=== PATIENT | female | born 1930 | race African-American/Black ===

== ENCOUNTER 2018-08-09 13:06 | Inpatient (IN) | payer MEDICARE, OTHER ==
[~2018-08-09 13:06] MED LIST: ALIS300T PO; AMLO10TA6 PO; ARIP5TAB10 PO; ASPI-1152 PO; FURO20TA4 PO; METF-441 PO; METO-356 PO; VALS320T16 PO
[2018-08-09 14:30] VITALS: BP 130/63
--- NOTE | 2018-08-09 14:30 | NUR ---
MS DOG HAIR CLIPPER NOTE PATIENT RECEIVED FROM GPS,ADMITTING WITH C/O LETHARGY AND POOR APPETITE.REPORT GIVEN BY CLAIR MICHELLE.ON HOLD 5250 EXPIRES ON 08/21/2018.PATIENT ON BED AXOX1.FOLLOW SIMPLE COMMAND .HISTORY OBTAINED FROM REPORT.ON ROOM AIR.NO SOB NO DISTRESS NOTED.CALL LIGHT IN REACH.SRX3.SITTER AT BEDSIDE.BED IS LOW AND IN LOCKED POSITION. MADE AWARE ABOUT ADMISSION.WILL CONTINUE TO MONITOR.
[2018-08-09] MEDS ORDERED: ONDANSETRON HCL/PF 4 MG/2 ML VIAL IVP PRN (15:00)
[2018-08-09] MEDS ORDERED: Z GUARD REMEDY 2 OZ OINT TP PRN (15:00)
[2018-08-09] MEDS ORDERED: ACETAMINOPHEN 325 MG TABLET PO PRN (15:00)
[2018-08-09] MEDS ORDERED: MAG HYDROX/AL HYDROX/SIMETH 30 ML UDC PO PRN (15:00)
[2018-08-09] MEDS ORDERED: MAGNESIUM HYDROXIDE 30 ML UDC PO PRN (15:00)
[2018-08-09] MEDS: IV NS 0.9% 1,000 ML IV PRN (15:55)
[2018-08-09 16:00] VITALS: BP 126/72
--- NOTE | 2018-08-09 17:00 | NUR ---
MS RN NOTE GOT CALL FROM CLAIR MICHELLE PER DISCONTINUE ORDER FOR HOLD.NOTED AND CARRIED OUT.
--- NOTE | 2018-08-09 19:13 | NUR ---
MS RN CLOSING NOTE REPORT GIVEN FOR PM NURSE FOR JULIO.PATIENT IN STABLE CONDITION.SAFETY MEASURES MAINTAINED.
[2018-08-09 20:00] VITALS: BP 106/73
--- NOTE | 2018-08-09 20:00 | NUR ---
MS RN NOTES RECEIVED PT ON BED. A/O X1 CONFUSED. TRYING TO GET OUT OF BED. ON ROOM AIR SATURATING WELL NO RESPIRATORY DISTRESS NOTED. IV ACCESS PATENT AND INTACT. HEAD OF BED ELEVATED. BED ALARM ON. SIDE RAILS UP X3. CALL LIGHT WITHIN REACH. WILL CONTINUE TO MONITOR PT CLOSELY.
--- NOTE | 2018-08-09 23:24 | NUR ---
MS RN NOTES PT TRYING TO GET OUT OF BED. PAGE ELECTRICIAN ELEVATOR MAINTENANCE OF PAGED. ORDERED SOFT B. WRIST RESTRAINTS. WILL CONTINUE TO MONITOR PT CLOSELY.
--- NOTE | 2018-08-10 00:53 | NUR ---
MS RN NOTES PT REFUSING DVT PUMP. PT KICKING. WILL CONTINUE TO MONITOR PT CLOSELY.
[2018-08-10 04:00] VITALS: BP 128/74
[2018-08-10] MEDS: IV NS 0.9% 1,000 ML IV PRN (05:06)
[2018-08-10 06:00] LABS: BASOPHILS % (AUTO) 0.4 % (0.0-2.0); EOSINOPHILS % (AUTO) 1.5 % (0.0-6.0); HEMATOCRIT 35 % (33-45); HEMOGLOBIN 11.7 g/dL (11.5-14.8); LYMPHOCYTES # (AUTO) 0.9 /CMM (0.8-4.8); MEAN CORPUSCULAR HGB CONC 34 g/dl (31.0-36.0); MEAN CORPUSCULAR VOLUME 91 fL (82-100); MONOCYTES # (AUTO) 0.4 /CMM (0.1-1.30); MONOCYTES % (AUTO) 6.6 % (2.0-12.0); NEUTROPHILS # (AUTO) 4.7 /CMM (1.8-8.9); NEUTROPHILS % (AUTO) 77.5 % (43.0-81.0); PLATELET COUNT (AUTO) 348 /CMM (150-450); RED BLOOD CELL COUNT(AUTO) 3.83 MIL/uL (4.0-5.2); WHITE BLOOD COUNT (AUTO) 6.1 K/uL (4.3-11.0)
[2018-08-10 06:22] LABS: ALANINE AMINOTRANSFERASE 84 U/L (12-78); ALBUMIN 2.3 g/dL (3.4-5.0); ALKALINE PHOSPHATASE 119 U/L (46-116); ASPARTATE AMINOTRANSFERASE 59 U/L (15-37); BILIRUBIN,TOTAL 0.4 mg/dL (0.2-1.0); CALCIUM, SERUM 8.2 mg/dL (8.5-10.1); CARBON DIOXIDE 29 mmol/L (21-32); GLUCOSE 119 mg/dL (74-106); MAGNESIUM 1.8 mg/dL (1.8-2.4); PHOSPHORUS 2.1 mg/dL (2.5-4.9); POTASSIUM 3.5 mmol/L (3.5-5.1); TOTAL PROTEIN, SERUM 5.9 g/dL (6.4-8.2); UREA NITROGEN, BLOOD 30 mg/dL (7-18)
[2018-08-10 06:28] LABS: CHOLESTEROL 138 mg/dL (<200); HDL CHOLESTEROL 57 mg/dL (40-60); LDL 63 mg/dL (0-99); TRIGLYCERIDES 68 mg/dL (30-150)
[2018-08-10 06:34] LABS: CHLORIDE 106 mmol/L (98-107); SODIUM SERUM 142 mmol/L (136-145)
--- NOTE | 2018-08-10 06:45 | NUR ---
MS RN NOTES NO ACUTE CHANGES NOTED DURING THE SHIFT. PROVIDED COMFORT AND SAFETY. DUE MEDS GIVEN. WILL ENDORSE TO THE AM NURSE FOR CONTINUITY OF CARE.
--- NOTE | 2018-08-10 07:34 | NUR ---
MS RN OPENING NOTE RECEIVED PATIENT IN BED. AWAKE, SLIGHTLY LETHARGIC, ORIENTED X2. ON ROOM AIR, TOLERATING WELL. IN NO APPARENT DISTRESS OR DISCOMFORT AT THIS TIME. RESPIRATIONS EVEN AND UNLABORED. PATIENT ABLE TO COMMUNICATE SOME BASIC NEEDS, LEFT FA 22G IVC WITH FLUIDS RUNNING AT 75ML/HR. PATENT AND INTACT. BILATERAL SOFT WRIST RESTRAINT NOTED DUE TO PATIENT BEING COMBATIVE AND TRYING TO PULL OUT LINES, GOOD CIRCULATION PRESENT BILATERALLY, PATIENT KEPT CLEAN AND COMFORTABLE. ALL NEEDS ATTENDED, SAFETY MEASURES IN PLACE, BED IN LOW LOCKED POSITION , SIDE RAILS UP X2, CALL LIGHT WITHIN EASY REACH WILL CONTINUE TO MONITOR.
[2018-08-10 08:00] VITALS: BP 138/73
--- NOTE | 2018-08-10 09:57 | NUR ---
WOUND CARE CONSULT: PT PRESENTS WITH MULTIPLE SKIN ISSUES INCLUDING STAGE 2 ULCERS TO SACRUM AND RT BUTTOCK, DUSKY COLOR TO BILATERAL HEELS AND PLANTAR FEET, DRY ABRASIONS TO LEFT ARM AND ELBOW AND TO RT LATERAL KNEE, ALL PRESENT ON ADMISSION. RECOMMENDATIONS MADE FOR WOUND CARE AND SKIN PROTECTION. DISCUSSED WITH NURSING STAFF. WILL SEE PRN. LOW IN AGREEMENT WITH PLAN OF CARE. ISOFLEX LOW AIRLOSS BED TO BE PLACED. CURRENT JOSEPH SCORE IS 11. Addendum: 08/10/18 at 0959 by DENNYS LEMONS WNDNU Amended: Links added.
[2018-08-10] MEDS ORDERED: HYDROGEL DRESSING 90 GM TUBE TP PRN (10:00)
[2018-08-10] MEDS ORDERED: NEUTRA PHOS 1 POWD.PACKET NG ONE (11:00)
[2018-08-10] MEDS ORDERED: ARIPIPRAZOLE 5 MG TABLET PO SCH (11:46)
--- NOTE | 2018-08-10 11:49 | NUR ---
PER DR. DAMIAN ORDER ACCU-CHECKS A[facility]S WITH MILD [employer]IDING [employer] COVERAGE, NOTIFY GPS FOR PSYCH FOLLOW UP. NOTED AND CARRIED OUT.
--- NOTE | 2018-08-10 11:50 | NUR ---
[facility]PS NOTIFIED FOR PSYCH FOLLOW UP. DR. HUYNH IS TO FOLLOW UP WITH THE PATIENT.
[2018-08-10] MEDS: METFORMIN 850 MG TABLET PO SCH ×2 (11:57→16:47)
[2018-08-10] MEDS: HYDROGEL DRESSING 90 GM TUBE TP SCH (12:10)
--- NOTE | 2018-08-10 13:59 | NUR ---
Patient was [facility] to acute medical floor due to dehydration and lethargy. Patient resides at in a one story home with her daughter [address] [place] [address].Spoke with daughter, states patient ambulates with a walker and requires min-mod assist with adl's. Patient daughter is her primary caregiver and [facility] provider 64.9hrs/month. Current dc plan is to return home, daughter requested homehealth f/u when discharge, she will provide ride. Addendum: 08/10/18 at 1400 by LOVE RENAE RN Amended: Links added.
[2018-08-10 16:00] VITALS: BP_SYST 122; BP_SYST 184; BP_DIAS 72; BP_DIAS 89
[2018-08-10] MEDS ORDERED: DEXTROSE 50%-WATER 50 ML DISP.SYRIN IV PRN (16:00)
[2018-08-10] MEDS: BLOOD SUGAR DIAGNOSTIC 1 EACH STRIP IN SCH ×2 (16:47→22:01)
[2018-08-10] MEDS: INSULIN REGULAR, HUMAN 100 UNIT/ML 3 ML VIAL SQ PRN ×2 (16:50→22:02)
[2018-08-10] MEDS ORDERED: VALSARTAN 80 MG TABLET PO ONE (17:00)
[2018-08-10] MEDS: HALOPERIDOL 1 MG TABLET PO SCH (17:00)
[2018-08-10] MEDS ORDERED: METOPROLOL SUCCINATE 25 MG TAB.SR.24H PO ONE (17:00)
[2018-08-10] MEDS ORDERED: AMLODIPINE BESYLATE 10 MG TABLET PO ONE (17:00)
--- NOTE | 2018-08-10 17:46 | NUR ---
PER DR. HUYNH, PATIENT CANNOT BE ON HALDOL AND ABILIFY AT THE SAME TIME. DR HUYNH DISCONTINUED ABILIFY AND STARTED PATIENT ON HALDOL. SINCE MEDICATION ABILIFY WAS ALREADY ADMINISTERED TODAY, HELD HALDOL DOSE FOR TODAY. WILL CONTINUE TO MONITOR.
[2018-08-10 18:00] VITALS: BP 122/72
--- NOTE | 2018-08-10 18:38 | NUR ---
MS RN CLOSING NOTE PATIENT IN BED. EASILY AROUSED WITH VERBAL STIMULI ORIENTED X1-2. ON ROOM AIR, TOLERATING WELL. IN NO APPARENT DISTRESS OR DISCOMFORT AT THIS TIME. RESPIRATIONS EVEN AND UNLABORED. PATIENT ABLE TO COMMUNICATE SOME BASIC NEEDS, LEFT FA 22G IVC WITH FLUIDS RUNNING AT 75ML/HR. PATENT AND INTACT. BILATERAL SOFT WRIST RESTRAINT PRESENT DUE TO PATIENT TRYING TO PULL OUT LINES, SCRATCHING HERSELF AND OTHERS, GOOD CIRCULATION PRESENT BILATERALLY, PATIENT KEPT CLEAN AND COMFORTABLE. ALL NEEDS ATTENDED, ORDERS RENDERED, SAFETY MEASURES IN PLACE, BED IN LOW LOCKED POSITION , SIDE RAILS UP X3, CALL LIGHT WITHIN EASY REACH. WILL ENDORSE TO PM NURSE FOR JULIO.
[2018-08-10 20:00] VITALS: BP 137/72
--- NOTE | 2018-08-10 20:10 | NUR ---
RN OPENING NOTES RECEIVED REPORT FROM CHAIM MICHELLE. PATIENT A/A/O X1 W/ CONFUSION & DIFFICULTY TO MAKE NEEDS KNOWN. BREATHING EVEN & UNLABORED, TOLERATING ROOM AIR. NO S/S OF SOB OR DIFFICULTY BREATHING. RADIAL PULSES PRESENT. LEFT FOREARM IV #22 INTACT & PATENT W/ DRESSING CDI & IVF NS INFUSING WELL @ 75 ML/HR. NO S/S OF PAIN OR DISCOMFORT @ THIS TIME. SAFETY MEASURES IN PLACE W/ SIDE RAILS UP & BED ALARM ON. BILATERAL SOFT WRIST RESTRAINTS APPLIED. CONTACT & DROPLET ISOLATION IN PLACE. WILL CONTINUE TO MONITOR.
[2018-08-11] MEDS: IV NS 0.9% 1,000 ML IV PRN (00:03)
[2018-08-11 04:00] VITALS: BP 126/77
--- NOTE | 2018-08-11 07:40 | NUR ---
MS RN NOTE BLOOD SUGAR-154 NO INSULIN AT THIS TIME PER CAR SALESPERSON NURSE PATIENT HAD LOWER SUGAR THIS MORNING (61)AND ORANGE JUICE WAS GIVEN.
--- NOTE | 2018-08-11 07:45 | NUR ---
MS VIVIANA OPENING NOTE RECEIVED ROMAN PRIETO BED LOCKED IN LOWEST POSITION WITH SIDERAILS UP X2 FOR SAFETY. ALERT AND ORIENTED X1, CONFUSED AND NEEDS REORIENTATION. HAS WOUND TREATMENT TO BE DONE THROUGHOUT SHIFT AND PRN NEEDED WHEN SOILED. PUREED DIET. HAS LEFT FOREARM IV INTACT AND PATENT WITH IV FLUIDS RUNNING AT THIS TIME. BLOOD SUGAR CHECK AND INSULIN TO BE GIVEN NEEDED. WILL CONTINUE TO MONITOR THROUGHOUT SHIFT Addendum: 08/11/18 at 1036 by DEDRICK LIVE RN ON SOFT BILATERAL RESTRAINTS FOR SAFETY. PATIENT ATTEMPTS TO REMOVED LINES
[2018-08-11] MEDS: BLOOD SUGAR DIAGNOSTIC 1 EACH STRIP IN SCH ×4 (07:51→21:17)
[2018-08-11] MEDS: METFORMIN 850 MG TABLET PO SCH ×2 (09:00→16:46)
[2018-08-11] MEDS ORDERED: [UNRECOGNIZED DRUG - OTHER] PO SCH (09:00)
[2018-08-11] MEDS: VALSARTAN 80 MG TABLET PO SCH (09:00)
[2018-08-11] MEDS: ASPIRIN EC 81 MG TABLET.DR PO SCH (09:00)
[2018-08-11] MEDS: HALOPERIDOL 1 MG TABLET PO SCH ×2 (09:00→12:06)
[2018-08-11] MEDS: AMLODIPINE BESYLATE 10 MG TABLET PO SCH (09:00)
[2018-08-11] MEDS: METOPROLOL SUCCINATE 25 MG TAB.SR.24H PO SCH (09:00)
[2018-08-11] MEDS ORDERED: ARIPIPRAZOLE 5 MG TABLET PO SCH (09:00)
--- NOTE | 2018-08-11 09:00 | NUR ---
MS MICHELLE NOTE PATIENT REFUSING CRUSHED MEDICATION. MEDICATION WASTED IN OMNICELL Addendum: 08/11/18 at 1104 by DEDRICK LIVE RN HALDOL NOT AVAILABLE AT THIS TIME. NOTIFIED PHARMACY
[2018-08-11] MEDS: HYDROGEL DRESSING 90 GM TUBE TP SCH (11:38)
--- NOTE | 2018-08-11 11:39 | NUR ---
MS RN NOTE PATIENT'S BLOOD SUGAR -179 INSULIN TO BE GIVEN WHEN FOOD IS AT BEDSIDE
--- NOTE | 2018-08-11 12:04 | NUR ---
MS RN NOTE SPOKE WITH PHARMACIST-JYOTSNA JOSEPH MD NOTIFIED ABOUT HALDOL DOSE 1MG NOT AVAILABLE AT THIS TIME.
[2018-08-11 12:07] VITALS: BP 127/71
[2018-08-11] MEDS: INSULIN REGULAR, HUMAN 100 UNIT/ML 3 ML VIAL SQ PRN ×2 (13:23→21:18)
--- NOTE | 2018-08-11 16:05 | NUR ---
MS RN NOTE RIGHT AC 20G IV INSERTED. FLUSHING WELL
--- NOTE | 2018-08-11 16:10 | NUR ---
MS RN NOTE DR HUYNH AT BEDSIDE
[2018-08-11] MEDS: HALOPERIDOL LACTATE 10 MG/5 ML UDC PO SCH (16:47)
--- NOTE | 2018-08-11 18:34 | NUR ---
MS RN CLOSING NOTE PATENT IN BED LOCKED IN LOWEST POSITION WITH SIDERAILS UP X2 FOR SAFETY. NO SOB OR DISTRESS NOTED ON ROOM AIR TOLERATING WELL. HAS SOFT BILATERAL RESTRAINTS FOR SAFETY, PATIENT REMOVES LINES. ALERT AND ORIENTED X1, CONFUSED AND NEEDS REORIENTATION. WOUND TREATMENT DONE ON SHIFT. PUREED DIET. HAS RIGHT AC 20G IV INTACT AND PATENT WITH NO IV FLUIDS RUNNING AT THIS TIME. BLOOD SUGAR CHECKED AND INSULIN GIVEN NEEDED. ALL DUE MEDICATIONS GIVEN ORDERED. ALL NURSING CARE NEEDS ATTENDED TO. ON ISOLATION FOR CORONAVIRUS, ISOLATION PRECAUTIONS IN PLACE. WILL ENDORSE TO LANGUAGE PATHOLOGIST NURSE FOR JULIO
--- NOTE | 2018-08-11 19:28 | NUR ---
MS RN NOTE: RECEIVED PT ON BED ASLEEP, AROUSES EASILY TO VERBAL AND TACTILE STIMULI. NO ACUTE DISTRESS NOTED. NO FACIAL GRIMACING OR ANY SIGNS OF PAIN NOTED. ON ROOM AIR, NO SOB NOTED. ON BILATERAL SOFT WRIST RESTRAINT. IV ON RIGHT ANTECUBITAL #20 INTACT AND PATENT, FLUSHING WELL. KEPT CLEAN, DRY AND COMFORTABLE. SIDE RAILS UP X3. BED ALARM ON, BED LOCKED AND IN LOWEST POSITION. DROPLET ISOLATION OBSERVED AND MAINTAINED. WILL CONTINUE TO MONITOR PT
[2018-08-11 20:00] VITALS: BP 116/57
[2018-08-12 04:00] VITALS: BP 139/70
--- NOTE | 2018-08-12 06:34 | NUR ---
MS RN NOTE: NO CHANGES NOTED THROUGHOUT THE SHIFT. DENIES PAIN AND DISCOMFORT. ON ROOM AIR, NO SOB NOTED. IV ON RIGHT ANTECUBITAL #20 INTACT AND PATENT, FLUSHING WELL. KEPT CLEAN, DRY AND COMFORTABLE. DROPLET PRECAUTION OBSERVED AND MAINTAINED. WILL ENDORSE TO DAY SHIFT RN FOR CONTINUITY OF CARE.
[2018-08-12 07:01] LABS: BASOPHILS % (AUTO) 0.3 % (0.0-2.0); EOSINOPHILS % (AUTO) 1.4 % (0.0-6.0); HEMATOCRIT 34 % (33-45); HEMOGLOBIN 11.4 g/dL (11.5-14.8); LYMPHOCYTES # (AUTO) 1.1 /CMM (0.8-4.8); LYMPHOCYTES % (AUTO) 16.8 % (20.0-44.0); MEAN CORPUSCULAR HGB CONC 33 g/dl (31.0-36.0); MEAN CORPUSCULAR VOLUME 91 fL (82-100); MONOCYTES # (AUTO) 0.7 /CMM (0.1-1.30); MONOCYTES % (AUTO) 10.7 % (2.0-12.0); NEUTROPHILS # (AUTO) 4.6 /CMM (1.8-8.9); NEUTROPHILS % (AUTO) 70.8 % (43.0-81.0); PLATELET COUNT (AUTO) 349 /CMM (150-450); RED BLOOD CELL COUNT(AUTO) 3.78 MIL/uL (4.0-5.2); WHITE BLOOD COUNT (AUTO) 6.6 K/uL (4.3-11.0)
[2018-08-12 07:08] LABS: ALANINE AMINOTRANSFERASE 65 U/L (12-78); ALBUMIN 2.3 g/dL (3.4-5.0); ALKALINE PHOSPHATASE 119 U/L (46-116); ASPARTATE AMINOTRANSFERASE 45 U/L (15-37); BILIRUBIN,TOTAL 0.4 mg/dL (0.2-1.0); CALCIUM, SERUM 8.3 mg/dL (8.5-10.1); CARBON DIOXIDE 27 mmol/L (21-32); CHLORIDE 103 mmol/L (98-107); CREATININE 0.9 mg/dL (0.6-1.3); GLUCOSE 133 mg/dL (74-106); MAGNESIUM 1.5 mg/dL (1.8-2.4); PHOSPHORUS 1.9 mg/dL (2.5-4.9); POTASSIUM 3.6 mmol/L (3.5-5.1); SODIUM SERUM 138 mmol/L (136-145); TOTAL PROTEIN, SERUM 5.9 g/dL (6.4-8.2); UREA NITROGEN, BLOOD 12 mg/dL (7-18)
[2018-08-12 08:00] VITALS: BP 149/66
--- NOTE | 2018-08-12 08:17 | NUR ---
RN NOTE: RECEIVED PATIENT IN BED, A/OX1, MOUTHS WORDS, NOT ON ANY FORM OF DISTRESS, ON ROOM AIR, BREATHING UNLABORED, NO SHORTNESS OF BREATH NOTED, NO SIGN OF PAIN NOTED AT THIS TIME, BILATERAL SOFT RESTRAIN IN PLACE- NO SKIN BREAKDOWN OR SKIN DISCOLORATION NOTED, PATIENT ABLE TO MOVE FINGERS FREELY, IV LINE ON THE RAC G [address] AND INTACT, SALINE LOCKED, FLUSHES WELL. SAFETY MEASURES OBSERVED AND MAINTAINED, SRX2 UP, BED LOW AND LOCKED, CALL LIGHT WITHIN EASY REACH, WILL CONTINUE TO ANTICIPATE NEEDS AND WILL MONITOR CLOSELY
[2018-08-12] MEDS: ASPIRIN EC 81 MG TABLET.DR PO SCH (08:56)
[2018-08-12] MEDS: BLOOD SUGAR DIAGNOSTIC 1 EACH STRIP IN SCH ×4 (08:56→21:35)
[2018-08-12] MEDS: METFORMIN 850 MG TABLET PO SCH ×2 (08:56→18:00)
[2018-08-12] MEDS: HALOPERIDOL LACTATE 10 MG/5 ML UDC PO SCH ×3 (08:56→18:00)
[2018-08-12] MEDS: METOPROLOL SUCCINATE 25 MG TAB.SR.24H PO SCH (08:57)
[2018-08-12] MEDS: AMLODIPINE BESYLATE 10 MG TABLET PO SCH (08:57)
[2018-08-12] MEDS: VALSARTAN 80 MG TABLET PO SCH (08:57)
[2018-08-12] MEDS: HYDROGEL DRESSING 90 GM TUBE TP SCH (09:02)
[2018-08-12] MEDS: Magnesium 1GM/D5W 100ML PREMIX 100 ML IV SCH ×2 (11:11→12:06)
[2018-08-12] MEDS: INSULIN REGULAR, HUMAN 100 UNIT/ML 3 ML VIAL SQ PRN ×2 (12:28→18:03)
[2018-08-12] MEDS ORDERED: IV NS 0.9% 250 ML IV ONE (12:30)
[2018-08-12] MEDS: Potassium Phosphate meq 11 MEQ in IV D5W 100 ML IV SCH ×2 (14:44→18:00)
[2018-08-12 15:09] VITALS: BP 149/66
[2018-08-12 16:00] VITALS: BP 122/50
[2018-08-12] MEDS: GLUCERNA SHAKE 237 ML CAN PO SCH (18:06)
[2018-08-12 18:47] VITALS: BP 122/50
--- NOTE | 2018-08-12 19:09 | NUR ---
RN NOTES ENDORSED PATIENT FOR CONTINUITY OF CARE. NO ACUTE CHANGES THROUGHOUT THE SHIFT. ALL NURSING NEEDS ATTENDED AND MET, SAFETY MEASURES KEPT AT ALL TIMES,BED ALARM ON, BED LOW AND LOCKED POSITION. CALL LIGHT WITHIN REACH AT ALL TIMES
--- NOTE | 2018-08-12 19:48 | NUR ---
MS RN NOTE: RECEIVED PT ON BED ALERT WITH EPISODES OF CONFUSION. NO ACUTE DISTRESS NOTED. NO FACIAL GRIMACING OR ANY SIGNS OF PAIN NOTED. ON ROOM AIR, NO SOB NOTED. ON BILATERAL SOFT WRIST RESTRAINTS. IV ON RIGHT ANTECUBITAL #20 INTACT AND PATENT, FLUSHING WELL. KEPT CLEAN, DRY AND COMFORTABLE. SIDE RAILS UP X3. BED ALARM ON, BED LOCKED AND IN LOWEST POSITION. DROPLET ISOLATION OBSERVED AND MAINTAINED. WILL CONTINUE TO MONITOR PT
[2018-08-12 20:00] VITALS: BP 112/47
--- NOTE | 2018-08-12 23:19 | NUR ---
MS RN NOTE: REPORT GIVEN TO [place] MICHELLE FOR CONTINUITY OF CARE.
[2018-08-13 04:01] VITALS: BP 112/47
--- NOTE | 2018-08-13 07:00 | NUR ---
MS RN NOTES RECEIVED PT IN BED, AWAKE. PT IS CONFUSED AND IN SOFT RESTRAINTS. ISOLATION PRECAUTIONS IN PLACE/MAINTAINED. IV SITE NO S/SX OF INFECTION. BED IN LOCKED/LOWEST POSITION. CALL LIGHT IN REACH. WILL CONT TO MONITOR.
[2018-08-13 07:57] LABS: CALCIUM, SERUM 8.1 mg/dL (8.5-10.1); CARBON DIOXIDE 23 mmol/L (21-32); CHLORIDE 103 mmol/L (98-107); CREATININE 1.1 mg/dL (0.6-1.3); GLUCOSE 85 mg/dL (74-106); MAGNESIUM 1.7 mg/dL (1.8-2.4); POTASSIUM 3.9 mmol/L (3.5-5.1); SODIUM SERUM 137 mmol/L (136-145); UREA NITROGEN, BLOOD 17 mg/dL (7-18)
[2018-08-13] MEDS: BLOOD SUGAR DIAGNOSTIC 1 EACH STRIP IN SCH ×2 (08:04→12:05)
[2018-08-13] MEDS: GLUCERNA SHAKE 237 ML CAN PO SCH ×2 (08:51→12:10)
[2018-08-13] MEDS: ASPIRIN EC 81 MG TABLET.DR PO SCH (08:53)
[2018-08-13] MEDS: VALSARTAN 80 MG TABLET PO SCH (08:53)
[2018-08-13] MEDS: METFORMIN 850 MG TABLET PO SCH (08:54)
[2018-08-13 08:55] VITALS: BP 126/70
[2018-08-13] MEDS: AMLODIPINE BESYLATE 10 MG TABLET PO SCH (08:55)
[2018-08-13] MEDS: HALOPERIDOL LACTATE 10 MG/5 ML UDC PO SCH ×2 (08:55→12:23)
[2018-08-13] MEDS: METOPROLOL SUCCINATE 25 MG TAB.SR.24H PO SCH (08:57)
[2018-08-13] MEDS: HYDROGEL DRESSING 90 GM TUBE TP SCH (09:03)
[2018-08-13] MEDS: Magnesium 1GM/D5W 100ML PREMIX 100 ML IV SCH ×2 (10:24→11:55)
[2018-08-13] MEDS ORDERED: MULT1TAB73 PO (12:34)
[2018-08-13] MEDS ORDERED: NUT.237L45 PO (12:34)
--- NOTE | 2018-08-13 15:00 | NUR ---
ms rn notes isolation precautions for yu virus were being maintained; no evidence in chart of pt having yu virus. charge nurse notified. machine adjuster leader case trim anay notified d/t transfer to [facility].
--- NOTE | 2018-08-13 16:10 | NUR ---
ms rn notes pt discharged to [facility] with ambulance crew. iv removed. pics taken. discharge instructions given to amb crew. report given to eleuterio at [facility]. all needs attended.
== END 2018-08-13 16:10 | DRG 682 ==
LOC: MEDSG1 13:08
PROVIDERS: ADMIT Internal Medicine; ATTEND Internal Medicine
DX: N17.0 Acute kidney failure with tubular necrosis (principal); G93.41 Metabolic encephalopathy; E44.0 Moderate protein-calorie malnutrition; I11.0 Hypertensive heart disease with heart failure; I50.9 Heart failure, unspecified; F03.90 Unspecified dementia, unspecified severity, without behavioral disturbance, psychotic disturbance, mood disturbance, and anxiety; E78.5 Hyperlipidemia, unspecified; E11.9 Type 2 diabetes mellitus without complications; E83.39 Other disorders of phosphorus metabolism; E83.42 Hypomagnesemia; F20.9 Schizophrenia, unspecified; F29 Unspecified psychosis not due to a substance or known physiological condition; T50.1X5A Adverse effect of loop [high-ceiling] diuretics, initial encounter; T46.5X5A Adverse effect of other antihypertensive drugs, initial encounter; Y92.89 Other specified places as the place of occurrence of the external cause; R62.7 Adult failure to thrive; Z79.84 Long term (current) use of oral hypoglycemic drugs
CPT/HCPCS: 36415; 70450-TC; 80048-TC; 80053-TC; 80061-TC; 82962-TC; 83735-TC; 84100-TC; 85025-TC; 97110-TC; 97112-TC; 97530-TC; A4606; A6248; G0378; J1815; J3475; J3490; J7030; J7050; J7060